=== PATIENT | female | born 1995 | race Two or more races ===

== ENCOUNTER → 2024-10-23 | Outpatient (CLI) | payer OTHER, SELFPAY ==
[2024-10-23 09:28] LABS: HCG,Qualitative Serum Positive
[2024-10-23 10:27] LABS: Beta HCG,Quantitative 179307 mIU/mL (<5.0)
== END | disposition home or self-care (01) ==
LOC: COPL 08:25
PROVIDERS: PCP Family Medicine; Referring Provider Family Medicine; Visit Provider Family Medicine
DX: N92.1 Excessive and frequent menstruation with irregular cycle (principal)
CPT/HCPCS: 36415; 84702; 84703

== ENCOUNTER 2025-01-16 02:02 | Inpatient (IN) | payer MEDICAID, SELFPAY ==
[2025-01-16] VITALS (10 sets, daily range): BP systolic 116–133; BP diastolic 60–86; PULSE 73–108; RESP 16–99; TEMP 36.6–37; O2SAT 97; BMI 30.4
[2025-01-16] MEDS: RINGERS LACTATED 1000 ML 1,000 ML 100 ML IV (02:15)
[2025-01-16 03:01] LABS: Basophils # (Auto) 0.0 Thou/mm3 (0.0-0.2); Basophils % (Auto) 0 % (0-2.5); Eosinophils # (Auto) 0.0 Thou/mm3 (0.0-0.5); Eosinophils % (Auto) 0 % (0-10); Hematocrit 32.3 % (36.0-46.0); Hemoglobin 11.8 g/dL (12.0-16.0); Immature Granulocytes Auto 0.09 Thou/mm3 (0.00-0.00); Lymphocytes # (Auto) 1.8 Thou/mm3 (1.0-4.8); Lymphocytes % (Auto) 13 % (10-50); Mean Corpuscular HGB Conc 36.5 g/dl (31.0-37.0); Mean Corpuscular Hemoglobin 31.0 pg (25.0-35.0); Mean Corpuscular Volume 85 fL (80-100); Monocytes # (Auto) 0.7 Thou/mm3 (0.0-0.8); Monocytes % (Auto) 5 % (0-12); Neutrophils # (Auto) 11.2 Thou/mm3 (1.8-7.7); Neutrophils % (Auto) 81 % (37-80); Nucleated Red Blood Cell # 0.00 Thou/mm3 (0.00-0.00); Nucleated Red Blood Cell % 0 /100 WBC (0); Platelet Count 210 Thou/mm3 (140-440); RDW Standard Deviation 40.2 fL (36.4-46.3); Red Blood Count 3.81 Miln/mm3 (4.00-5.20); White Blood Count 13.9 Thou/mm3 (3.6-11.0)
[2025-01-16] MEDS: METHYLERGONOVINE INJ 0.2 MG/ML VIAL IM (03:49)
--- NOTE | 2025-01-16 04:01 | PD.LDHP ---
Documentation for date of: 01/16/25 OB Labor/Induct. HPI History of Present Illness Chief complaint: bleeding, cramping : 1 Para: 0 Term pregnancies: 0 pregnancies: 0 Living children: 0 History of Abortions: Spontaneous and Elective: 0 History of Vaginal deliveries: 0 History of sections: No RADHA: 06/01/25 Gestational Age (weeks): 20 Gestational Age (days): 4 History of present illness: Patient presents for cramping and vaginal bleeding. Unsure when it started, only that it started in the evening. She and her attended a football game and then came in around 0200. No LOF. No fevers/chills. In triage, patient went to restroom and delivered approx 20wk sized infant in the toilet. Per RN report, had heart rate 30's and gasping breaths for some time after delivery. She has not yet had any care (was scheduled to see Dr. Johnson for initial OB visit). Had not had any ultrasounds. Had not yet begun feeling movement. History of Present Dating criteria: based on LMP only Adequate Care: No (No care) Ultrasounds: none Narrative: No care Labs Maternal Blood Type: A Pos Labs: Unknown: RPR, Hepatitis B, Rubella Titre, HIV, Chlamydia, Gonorrhea, Herpes Type 1, Herpes Type 2, Group Beta Strep and Covid-19 Review of Systems Review of Systems Narrative Review of Systems: Review of Systems Systems Reviewed: All systems reviewed, normal except as documented Constitutional Constitutional: Denies body ache(s), Denies chills, Denies fever(s) and Denies headache(s) ENT Ears, Nose, Mouth, and Throat: Denies headache(s) and Denies vertigo Cardiovascular Cardiovascular: Denies chest pain, Denies palpitations, Denies dyspnea and Denies syncope Respiratory Respiratory: Denies cough, Denies dyspnea Gastrointestinal Gastrointestinal: Denies nausea and Denies vomiting Neurologic Neurologic: Denies convulsions, Denies headache(s), Denies other visual disturbances, Denies syncope and Denies vertigo Past Medical History Family History OTHER FAMILY HX: non-contributory Surgical History SURGICAL: Negative Section Social History SOCIAL: Denies tobacco/ETOH/illicit drug use. Supportive partner is present with her. Past Medical History Comments PMH COMMENT: Current BMI 30.5 Meds Home Medications and Allergies Home Medications ?Medication ?Instructions ?Recorded ?Confirmed ?Type vits no.124-ferrous fum 1 tab PO QDAY 01/16/25 01/16/25 History 27 mg iron-folic acid 800 mcg tablet ( Vitamin) Allergies Allergy/AdvReac Type Severity Reaction Status Date / Time NKA* Allergy Uncoded 01/16/25 02:35 OB Exam Physical Exam Vital signs: Pulse BP 93 124/73 01/16/25 03:49 01/16/25 03:49 Narrative: General: well developed, well nourished Cardiac: normal heart rate Lungs: breathing without distress Abdomen: soft, non-tender, no rebound or guarding Extremities: no edema BLE OB Results Labs 01/16/25 02:36 Labs: Short CBC 01/16/25 Range/Units 02:36 WBC 13.9 H (3.6-11.0) Thou/mm3 Hgb 11.8 L (12.0-16.0) g/dL Hct 32.3 L (36.0-46.0) % Plt Count 210 (140-440) Thou/mm3 OB Assessment & Plan Assessment and Plan (1) delivery, delivered: Status: Acute Assessment and plan: Bertha is a 29yo [id number] s/p precipitous vaginal delivery of approximately 20 week pre-viable infant in triage. Uncertain picture of cervical incompetence vs pre-term labor. PMhx/ complicated by: No care, no ultrasounds Plan: -Admit -Routine OB labs including UDS, T&S -Social work consult -Awaiting delivery of placenta. Cytotec 50mcg PO x1 (2) 20 weeks gestation of : Status: Acute (3) No care in current : Status: Acute (3) No care in current Qualifiers: Trimester: second trimester Qualified Code(s): O09.32 - Supervision of with insufficient care, second trimester
--- NOTE | 2025-01-16 04:15 | PC.NURSE ---
At 0400 measurements obtained. Weight is 370grams and length is 10.5 inches. At 0415 memory box provided to parents in room 459. Education provided, parents accepted to hold baby after being apprehensive. Parents are emotional, but agreed to call out when they want baby taken.
--- NOTE | 2025-01-16 04:22 | OBDSUM_ITS ---
Data (Yepez) Data Hx Section: No : 1 Term: 0 : 0 Livin Abortions: Spontaneous & Theraputic: 0 Delivery Data (Yepez) Labor Data Induction/Augmentation Agent: None ROM date: 01/16/25 ROM time: 02:10 Amniotic membrane rupture type: Spontaneous Amniotic fluid description: Clear Delivery Data Onset of labor date: 01/16/25 Onset of labor time: 02:10 Complete dilation date: 01/16/25 Complete dilation time: 02:10 Cressey delivery date: 01/16/25 delivery time: 02:10 Placenta delivery date: 01/16/25 Placenta delivery time: 03:43 Stage 1 total time: Labor - Stage 1 Duration 0 minutes Delivered by: Farheen De Luna Delivery nurse: TERRY RNC Neworn nurse: TERRY RNC Systems Engineering Manager at delivery: No Delivery Method Delivery method: Normal Vaginal Delivery Presentation: Vertex Anesthesia Type Anesthesia Type: None Placenta Cord blood sent to lab: No Episiotomy Episiotomy description: None EBL Estimated blood loss (ml): 250 Umbilical Cord cord description: 3 Vessels Additional Procedures Bertha is a 29yo [id number] s/p precipitous vaginal delivery of approximately 20 week pre-viable in triage. Uncertain picture of cervical incompetence vs pre-term labor. No care, no ultrasounds. She went to restroom and infant delivered in the toilet. RN lifted the out and cord was clamped x2 and cut. She did not note a cry or any obvious signs of life. However, was taken to NICU to pass away peacefully without distressing the patient, and RN in NICU reports heart rate 30's and agonal breaths occurred for >30 minutes. Thus, male definitively born alive, weight 370g. Patient was given cytotec 50mcg PO to assist with delivery of placenta since it did not immediately deliver. When I evaluated position of placenta, it was just inside of cervix. Patient was able to bear down and placenta delivered spontaneously. It was carefully inspected, noted to be intact. Sent to pathology. Fundal massage performed. Hemostasis was noted. Inspection of perineum and vagina revealed no lacerations. 0.2mg IM methergine given for prophylaxis. All counts correct x2. Patient was doing well when I left the room. Farheen De Luna MD Complications Complications: none Data (Yepez) Cressey Data order: 1 Cressey's gender: Male weight (gms): 370 g Weight (pounds): 0 lbs and 13.1 ozs length: 26.92 cm 1 minute: 0 5 minutes: 0 10 minutes: 0
--- NOTE | 2025-01-16 04:40 | PC.NURSE ---
@[phone] NOTIFIED [employer], SPOKE WITH BLAINE Chance @0511 BOTTLE INSPECTOR NOTIFIED.
[2025-01-16 05:37] LABS: Amphetamine/Metham Scrn,Ur OB Negative (Negative); Benzoylecgonine Screen, Ur OB Negative (Negative); Opiate Screen,Urine OB Negative (Negative); THC Screen,Urine OB Negative (Negative)
--- NOTE | 2025-01-16 05:44 | PC.NURSE ---
MAAME FROM [facility] OFFICE ARRIVED TO EMERGENCY ROOM AND CALLED TO UNIT, THAT FETUS IS TOO SMALL TO EVALUATE AND ITS OKAY TO RELEASE REMAINS.
--- NOTE | 2025-01-16 06:45 | PC.NURSE ---
Mortuary medical customer service representative form [facility] here to orange picking supervisor remains of baby. Copy of signed release of remains and facesheet provided.
[2025-01-16 10:04] LABS: Basophils # (Auto) 0.0 Thou/mm3 (0.0-0.2); Basophils % (Auto) 0 % (0-2.5); Eosinophils # (Auto) 0.0 Thou/mm3 (0.0-0.5); Eosinophils % (Auto) 0 % (0-10); Hematocrit 30.7 % (36.0-46.0); Hemoglobin 10.7 g/dL (12.0-16.0); Immature Granulocytes Auto 0.06 Thou/mm3 (0.00-0.00); Lymphocytes # (Auto) 1.6 Thou/mm3 (1.0-4.8); Lymphocytes % (Auto) 16 % (10-50); Mean Corpuscular HGB Conc 34.9 g/dl (31.0-37.0); Mean Corpuscular Hemoglobin 29.6 pg (25.0-35.0); Mean Corpuscular Volume 85 fL (80-100); Monocytes # (Auto) 0.7 Thou/mm3 (0.0-0.8); Monocytes % (Auto) 7 % (0-12); Neutrophils # (Auto) 8.1 Thou/mm3 (1.8-7.7); Neutrophils % (Auto) 77 % (37-80); Nucleated Red Blood Cell # 0.00 Thou/mm3 (0.00-0.00); Nucleated Red Blood Cell % 0 /100 WBC (0); Platelet Count 191 Thou/mm3 (140-440); RDW Standard Deviation 39.2 fL (36.4-46.3); Red Blood Count 3.61 Miln/mm3 (4.00-5.20); White Blood Count 10.6 Thou/mm3 (3.6-11.0)
--- NOTE | 2025-01-16 11:53 | PC.CC ---
Pt referral was sent out for demise. Sample Display Preparer made [id number]-[id number] contact with patient to complete assessment. Sample Display Preparer introduced self, role, and reason for contact. Sample Display Preparer disclosed limits of confidentiality as well. Patient appeared alert and oriented to self, place, and situation. Patient made appropriate eye contact with this ad copy writer and remained euthymic throughout assessment. Sample Display Preparer reviewed community resources and referrals available for Pt. Pt declined all resources and referrals. Pt reported she is not interested in MH referral.
[2025-01-16 12:32] LABS: Basophils # (Auto) 0.0 Thou/mm3 (0.0-0.2); Basophils % (Auto) 0 % (0-2.5); Eosinophils # (Auto) 0.0 Thou/mm3 (0.0-0.5); Eosinophils % (Auto) 0 % (0-10); Hematocrit 31.4 % (36.0-46.0); Hemoglobin 11.0 g/dL (12.0-16.0); Immature Granulocytes Auto 0.08 Thou/mm3 (0.00-0.00); Lymphocytes # (Auto) 1.7 Thou/mm3 (1.0-4.8); Lymphocytes % (Auto) 15 % (10-50); Mean Corpuscular HGB Conc 35.0 g/dl (31.0-37.0); Mean Corpuscular Hemoglobin 29.8 pg (25.0-35.0); Mean Corpuscular Volume 85 fL (80-100); Monocytes # (Auto) 0.8 Thou/mm3 (0.0-0.8); Monocytes % (Auto) 7 % (0-12); Neutrophils # (Auto) 8.2 Thou/mm3 (1.8-7.7); Neutrophils % (Auto) 76 % (37-80); Nucleated Red Blood Cell # 0.00 Thou/mm3 (0.00-0.00); Nucleated Red Blood Cell % 0 /100 WBC (0); Platelet Count 207 Thou/mm3 (140-440); RDW Standard Deviation 39.4 fL (36.4-46.3); Red Blood Count 3.69 Miln/mm3 (4.00-5.20); White Blood Count 10.8 Thou/mm3 (3.6-11.0)
--- NOTE | 2025-01-16 13:21 | ESDS_ITS ---
DS: Providers Provider Date of admission: 01/16/25 02:27 Primary care physician: Physician No Primary/Family Admitting Provider: Farheen De Luna MD Attending Provider on Admission: Farheen De Luna MD Attending Provider on DC: Farheen De Luna MD Discharging Provider: Farheen De Luna MD DS: Diagnosis Discharge Diagnosis (1) delivery, delivered: Status: Acute (2) No care in current : Status: Acute (3) 20 weeks gestation of : Status: Acute Problem List Completed Was Problem List Reviewed/Reconciled?: Yes Summary/Hosp Course Brief History: Patient presents for cramping and vaginal bleeding. Unsure when it started, only that it started in the evening. She and her attended a football game and then came in around 0200. No LOF. No fevers/chills. In triage, patient went to restroom and delivered approx 20wk sized in the toilet. Per RN report, infant had heart rate 30's and gasping breaths for some time after delivery. She has not yet had any care (was scheduled to see Dr. Johnson for initial OB visit). Had not had any ultrasounds. Had not yet begun feeling movement. -- Bertha is a 29yo [id number] s/p precipitous vaginal delivery of approximately 20 week pre-viable in triage. Uncertain picture of cervical incompetence vs pre-term labor. No care, no ultrasounds. She has had an uncomplicated course, meeting all milestones and feels ready for discharge home. She is ambulating without lightheadedness, tolerating regular diet no n/v, spontaneously voiding without issue. She has no chest pain or shortness of breath. No fevers or chills. Minimal, appropriate discomfort. Vitals normal, benign exam. Hemodynamically stable with no evidence of infection. PP Hgb 11. -- I had a long conversation with Bertha regarding uncertainty of diagnosis: pre- term labor vs cervical incompetence. Given that she wasn't having very painful ctx for a prolonged period, I suspect more likely cervical incompetence. We discussed that she needs to establish care with Dr. Johnson and discuss plan for next : cervical lengths starting at 16 weeks. I advised to wait 6 months until next . Continue PNV, healthy diet and exercise. Note given for 2 weeks off work. I advised her to find a grief counselor via [employer]. Minimal social media over the next few weeks, sunlight/nature walks and time spent with loved ones to reduce risk for post- depression. Answered all questions. Peripartum Data Delivery Method: Normal Vaginal Delivery Episiotomy Description: None Status at Discharge Functional status at discharge: independent ambulation Overall status at discharge: patient is back to baseline Time Spent with Patient Time attestation: Total time spent providing and/or coordinating discharge services: Exam Vital Signs Temp Pulse Resp BP Pulse Ox O2 Del Method 98.2 F 89 18 116/81 97 Room Air 01/16/25 11:02 01/16/25 11:02 01/16/25 11:02 01/16/25 11:02 01/16/25 08:00 01/16/25 11:02 Narrative Exam General: well developed, well nourished, no acute distress, conversant Cardiac: normal heart rate Lungs: breathing without distress Abdomen: soft, non-tender, no rebound or guarding, Fundus firm at u-4cm. Extremities: no pain with palpation of calves, trace edema of BLE Discharge Plan Plan Patient Disposition: HOME (Self Care) Patient condition on transfer: Stable Prescriptions/Referrals Prescriptions/Med Rec: New ibuprofen 400 mg Tablet 800 mg PO Q8H PRN (Reason: See Comments) 10 Days Qty: 20 0RF docusate sodium 100 mg Capsule 100 mg PO BID 10 Days Qty: 20 0RF No Action Vitamin 27 mg iron- 800 mcg tablet 1 tab PO QDAY Referrals: No Primary/Family,Physician [Primary Care Provider] Patient/Caregiver Discharge Instructions Discharge Activity: activity as tolerated and other Other Discharge Activity Instructions:: vaginal rest and no heavy lifting more than 10 pounds for 6 weeks Other Discharge Diet Instructions: regular Education Materials: Loss Grieving Print Language: Upper Sorbian Activity Restrictions/Additional Instructions: follow up with Dr. Johnson for visit in 2 to 4 weeks, call clinic for appointment Stand Alone Forms: Catie Award Info., Patient Portal Info Letter Discharge Order Discharge Orders: Discharge (Routine); Ordered 01/16/25 Ordered By: Farheen De Luna Planned Discharge Date 01/16/25 (2) No care in current Qualifiers: Trimester: second trimester Qualified Code(s): O09.32 - Supervision of with insufficient care, second trimester
[2025-01-16 16:26] LABS: Syphilis Nonreactive (Nonreactive)
== END 2025-01-16 14:14 | disposition home or self-care (01) | DRG 560 ==
PROVIDERS: Admitting Provider Obstetrics & Gynecology; Visit Provider Obstetrics & Gynecology
DX: O60.12X0 Preterm labor second trimester with preterm delivery second trimester, not applicable or unspecified (principal); O62.3 Precipitate labor; Z3A.20 20 weeks gestation of pregnancy; Z37.0 Single live birth
CPT/HCPCS: 36415; 59409; 80307; 85025; 86780; 86850; 86900; 86901; J2210; J7120; A9270